=== PATIENT | male | born 1955 | race Caucasian/White ===

== ENCOUNTER 2023-10-24 16:47 | Emergency (ER) | payer MEDICARE | END 2023-10-24 19:25 | disposition home or self-care (01) | LOC: FB.ED 16:47 → MERGE 16:47 → FB.ED 19:25 | DX: S62.614A Displaced fracture of proximal phalanx of right ring finger, initial encounter for closed fracture (principal); S40.211A Abrasion of right shoulder, initial encounter; S80.212A Abrasion, left knee, initial encounter; S80.211A Abrasion, right knee, initial encounter; Z88.0 Allergy status to penicillin; V18.0XXA Pedal cycle driver injured in noncollision transport accident in nontraffic accident, initial encounter | CPT/HCPCS: 70450; 73140-F8; 99283; 99284 ==